=== PATIENT | male | born 1970 | race Caucasian/White ===

== ENCOUNTER 2019-05-19 16:58 | Emergency (ER) | payer MEDICAID ==
[~2019-05-19] VITALS: Ht 177.8 cm; Wt 68.2 kg
[2019-05-19] MEDS ORDERED: LIB5 PO (17:10)
[2019-05-19] MEDS ORDERED: ChlordiazePOXIDE HCL 25 MG CAPSULE PO ONE (18:00)
[2019-05-19] MEDS ORDERED: HYDROCORTISONE 2.5% 30 GM CREAM TP ONE (18:00)
[2019-05-19 18:13] VITALS: BP 118/94
== END 2019-05-19 18:14 | disposition home or self-care (01) ==
LOC: EMS 17:01
DX: R21 Rash and other nonspecific skin eruption (principal); L29.9 Pruritus, unspecified; F41.9 Anxiety disorder, unspecified; F12.90 Cannabis use, unspecified, uncomplicated; F17.210 Nicotine dependence, cigarettes, uncomplicated; Z88.8 Allergy status to other drugs, medicaments and biological substances

== ENCOUNTER 2019-05-22 22:07 | Emergency (ER) | payer MEDICAID ==
[~2019-05-22] VITALS: Ht 177.8 cm; Wt 69.5 kg
[~2019-05-22 22:07] MED LIST: LIB5 PO
[2019-05-23] MEDS ORDERED: IBUPROFEN 800 MG TABLET PO ONE (00:45)
[2019-05-23 01:00] VITALS: BP 136/72
== END 2019-05-23 01:26 | disposition home or self-care (01) ==
LOC: EMS 22:08
DX: S62.327A Displaced fracture of shaft of fifth metacarpal bone, left hand, initial encounter for closed fracture (principal); F41.9 Anxiety disorder, unspecified; F17.210 Nicotine dependence, cigarettes, uncomplicated; Z88.8 Allergy status to other drugs, medicaments and biological substances; W22.01XA Walked into wall, initial encounter; Y93.89 Activity, other specified; Y92.89 Other specified places as the place of occurrence of the external cause; Y99.8 Other external cause status

== ENCOUNTER 2019-06-23 19:49 | Emergency (ER) | payer MEDICAID ==
[~2019-06-23] VITALS: Ht 177.8 cm; Wt 72.7 kg
[2019-06-23 21:00] LABS: GLUCOSE,POINT OF CARE 97 MG/DL (70-110)
[2019-06-23 21:35] LABS: BASOPHILS % (AUTO) 0.8 % (0.0-2.0); EOSINOPHILS % (AUTO) 2.4 % (1.0-6.0); HEMATOCRIT 45.4 % (41-53); HEMOGLOBIN 14.9 g/dL (13.5-17.5); LYMPHOCYTES # (AUTO) 2.2 K/uL (1.0-4.8); LYMPHOCYTES % (AUTO) 32.9 % (22.0-44.0); MEAN CORPUSCULAR HEMOGLOBIN 32.3 pg (26.0-34.0); MEAN CORPUSCULAR HGB CONC 32.8 G/dL (31.0-37.0); MEAN CORPUSCULAR VOLUME 98 fL (80-100); MONOCYTES # (AUTO) 0.6 K/uL (0.1-1.0); MONOCYTES % (AUTO) 8.3 % (2.0-9.0); NEUTROPHILS # (AUTO) 3.7 K/uL (1.8-7.7); NEUTROPHILS % (AUTO) 55.6 % (40.0-70.0); PLATELET COUNT (AUTO) 254 K/uL (150-450); RED BLOOD CELL COUNT(AUTO) 4.62 MIL/uL (4.50-5.90); RED CELL DISTRIBUTION WIDTH 14.8 % (11.5-14.5)
[2019-06-23 22:01] LABS: ANION GAP 10 mmol/L (8-16); CALCIUM, TOTAL 8.7 mg/dL (8.8-10.5); CARBON DIOXIDE 26 mmol/L (22-29); CHLORIDE 106 mmol/L (98-107); CREATININE 0.66 mg/dL (0.60-1.30); GLOMERULAR FILTR. RATE CALC > 60 mL/min (>60); GLUCOSE,RANDOM 92 mg/dL (70-110); POTASSIUM 3.3 mmol/L (3.5-5.1); SODIUM SERUM 142 mmol/L (136-145); UREA NITROGEN, BLOOD 8 mg/dL (7-18)
[2019-06-23 22:09] LABS: ALANINE AMINOTRANSFERASE 168 U/L (12-78); ALBUMIN 3.1 g/dL (3.4-5.0); ALKALINE PHOSPHATASE 73 U/L (46-116); ASPARTATE AMINOTRANSFERASE 179 U/L (15-37); BILIRUBIN,TOTAL 0.9 mg/dL (0.1-1.0); TOTAL PROTEIN, SERUM 6.3 g/dL (6.4-8.2)
[2019-06-23] MEDS ORDERED: POTASSIUM CHLORIDE 10% 40 MEQ/30 ML LIQUID UDCUP PO ONE (22:15)
[2019-06-24 00:04] VITALS: BP 112/74
== END 2019-06-24 00:08 | disposition home or self-care (01) ==
LOC: EMS 19:50
DX: F10.129 Alcohol abuse with intoxication, unspecified (principal); K70.30 Alcoholic cirrhosis of liver without ascites; E87.6 Hypokalemia; F41.9 Anxiety disorder, unspecified; F17.210 Nicotine dependence, cigarettes, uncomplicated; Z88.0 Allergy status to penicillin; Y90.8 Blood alcohol level of 240 mg/100 ml or more
CPT/HCPCS: 36415; 80053; 82962; 85025; 99283; 99406; G0480

== ENCOUNTER 2019-06-24 08:22 | Emergency (ER) | payer MEDICAID ==
[~2019-06-24] VITALS: Ht 177.8 cm; Wt 72.7 kg
[2019-06-24] MEDS ORDERED: ChlordiazePOXIDE HCL 25 MG CAPSULE PO ONE (09:45)
[2019-06-24 10:15] VITALS: BP 139/81
== END 2019-06-24 10:25 | disposition home or self-care (01) ==
LOC: EMS 08:23
DX: F10.239 Alcohol dependence with withdrawal, unspecified (principal); F41.9 Anxiety disorder, unspecified; R11.0 Nausea; F17.210 Nicotine dependence, cigarettes, uncomplicated; Z59.0 Homelessness; Z88.8 Allergy status to other drugs, medicaments and biological substances

== ENCOUNTER 2019-10-01 15:33 | Emergency (ER) | payer MEDICAID ==
[~2019-10-01] VITALS: Ht 172.7 cm; Wt 70.5 kg
[2019-10-01] MEDS ORDERED: KETOROLAC TROMETHAMINE 30 MG/ML VIAL IM ONE (16:45)
[2019-10-01] MEDS ORDERED: AMOXICILLIN TRIHYDRATE 250 MG CAPSULE PO ONE (16:45)
[2019-10-01 17:36] VITALS: BP 123/76
== END 2019-10-01 17:37 | disposition home or self-care (01) ==
LOC: EMS 15:33
DX: K04.7 Periapical abscess without sinus (principal); F10.20 Alcohol dependence, uncomplicated; F41.9 Anxiety disorder, unspecified; F17.290 Nicotine dependence, other tobacco product, uncomplicated; Z88.6 Allergy status to analgesic agent; Z88.8 Allergy status to other drugs, medicaments and biological substances
CPT/HCPCS: 96372; 99283; J1885